=== PATIENT | female | born 1995 | race Two or more races ===

== ENCOUNTER 2020-10-02 14:03 | Observation (INO) | payer MEDICAID ==
[2020-10-02 16:00] LABS: Basophils # (auto) 0 10 ^3/uL (0-0.2); Basophils % (auto) 0.3 % (0.0-2.0); Eosinophils # (auto) 0.1 10 ^3/uL (0-0.8); Eosinophils % (auto) 0.9 % (0.0-7.0); Hematocrit 30.4 % (36.0-46.0); Lymphocytes # (auto) 2.8 10 ^3/uL (0.4-5.4); Lymphocytes % (auto) 20.7 % (10.0-50.0); Mean Corpuscular Hemoglobin 24.9 pg (28.0-32.0); Mean Corpuscular Hgb Conc. 32.7 g/dL (32.0-36.0); Mean Corpuscular Volume 76.2 fL (80.0-100.0); Monocytes # (auto) 0.5 10 ^3/uL (0-1.3); Monocytes % (auto) 3.3 % (0.0-12.0); Neutrophils # (auto) 10.2 10 ^3/uL (1.6-8.6); Neutrophils % (auto) 74.8 % (37.0-80.0); Nucleated Red Blood Cells % 0.1 %; Red Blood Cells 3.99 10^6/uL (4.0-5.20); Red Cell Distribution Width 16.2 % (11.8-14.3); White Blood Cell 13.7 10^3/uL (4.4-10.8)
[2020-10-02 16:19] LABS: Potassium 3.6 mmol/L (3.5-5.1)
[2020-10-02 16:20] LABS: INR 0.99 (0.9-1.15); Partial Thromboplastin Time 24.7 sec (23.6-33.0)
[2020-10-02 16:25] LABS: Albumin 2.2 g/dL (3.4-5.0); BUN/Creatinine Ratio 9.2; Bilirubin, Total 0.3 mg/dL (0.2-1.0); Calcium 8.9 mg/dL (8.5-10.1); Total Protein 7.7 g/dL (6.4-8.2); Uric Acid 5.2 mg/dL (2.6-6.0)
== END 2020-10-02 17:30 | disposition home or self-care (01) ==
LOC: LDRP 14:03
PROVIDERS: ADMIT Obstetrics & Gynecology; ATTEND Obstetrics & Gynecology
DX: O24.419 Gestational diabetes mellitus in pregnancy, unspecified control (principal); O26.893 Other specified pregnancy related conditions, third trimester; R20.0 Anesthesia of skin; Z3A.36 36 weeks gestation of pregnancy; Z79.899 Other long term (current) drug therapy
CPT/HCPCS: 36415; 59025; 76818; 80053; 81002; 84550; 85025; 85610; 85730; 94760; G0378

== ENCOUNTER 2020-10-05 07:50 | Observation (INO) | payer MEDICAID ==
[2020-10-05 09:07] LABS: Urine Bacteria FEW /hpf (None Seen); Urine Blood TRACE /uL (Negative); Urine Mucus FEW (None Seen); Urine Specific Gravity 1.027 (1.001-1.035); Urine WBC 76 /hpf (0 - 5)
== END 2020-10-05 11:08 | disposition home or self-care (01) ==
LOC: LDRP 07:50
PROVIDERS: ADMIT Obstetrics & Gynecology; ATTEND Obstetrics & Gynecology
DX: O13.3 Gestational [pregnancy-induced] hypertension without significant proteinuria, third trimester (principal); Z3A.36 36 weeks gestation of pregnancy; Z79.899 Other long term (current) drug therapy
CPT/HCPCS: 59025; 76818; 81001; 81002; 82570; 84156; 94760; G0378

== ENCOUNTER 2020-10-12 07:37 | Observation (INO) | payer MEDICAID ==
[~2020-10-12] VITALS: Ht 167.6 cm; Wt 136.5 kg
== END 2020-10-12 10:10 | disposition home or self-care (01) ==
LOC: LDRP 07:37
PROVIDERS: ADMIT Obstetrics & Gynecology; ATTEND Obstetrics & Gynecology
DX: O13.3 Gestational [pregnancy-induced] hypertension without significant proteinuria, third trimester (principal); Z3A.37 37 weeks gestation of pregnancy
CPT/HCPCS: 59025; 76818; 81002; 94760; G0378

== ENCOUNTER → 2020-10-16 | Outpatient (CLI) | payer MEDICAID ==
[2020-10-17 06:06] LABS: RPR Non Reactive (Non Reactive)
== END | disposition home or self-care (01) ==
LOC: LAB 09:57
PROVIDERS: ATTEND Obstetrics & Gynecology
DX: Z34.83 Encounter for supervision of other normal pregnancy, third trimester (principal); Z3A.37 37 weeks gestation of pregnancy
CPT/HCPCS: 86592

== ENCOUNTER 2020-10-18 08:05 | Observation (INO) | payer MEDICAID ==
[2020-10-18] MEDS ORDERED: LACTATED RINGER'S 1,000 ML IV ONE (11:30)
[2020-10-19] MEDS ORDERED: PREN-96 PO (14:01)
== END 2020-10-18 12:51 | disposition home or self-care (01) ==
LOC: LDRP 08:05
PROVIDERS: ADMIT Obstetrics & Gynecology; ATTEND Obstetrics & Gynecology
DX: O62.9 Abnormality of forces of labor, unspecified (principal); Z3A.38 38 weeks gestation of pregnancy
CPT/HCPCS: 59025; 76818; 81002; 94760; 96360; 96361; G0378

== ENCOUNTER 2020-10-19 13:38 | Inpatient (IN) | payer MEDICAID ==
[~2020-10-19] VITALS: Ht 30.5 cm; Wt 0.5 kg
[2020-10-19] MEDS ORDERED: PREN-96 PO (14:01)
[2020-10-19 15:54] LABS: Amphetamine Screen, Urine NEGATIVE (NEGATIVE); Barbiturate Scree,Urine NEGATIVE (NEGATIVE); Benzodiazephine Screen, Urine NEGATIVE (NEGATIVE); Cannabinoid Screen, Urine NEGATIVE (NEGATIVE); Cocaine Screen, Urine NEGATIVE (NEGATIVE); Opiate Scree,Urine NEGATIVE (NEGATIVE); Phencyclidine Screen, Urine NEGATIVE (NEGATIVE)
[2020-10-19] MEDS ORDERED: LACTATED RINGER'S 1,000 ML IV ONE (16:45)
[2020-10-19 19:08] LABS: Hemoglobin 9.9 g/dL (12.2-16.2); Mean Corpuscular Volume 76.2 fL (80.0-100.0); Monocytes # (auto) 0.6 10 ^3/uL (0-1.3)
[2020-10-19 19:10] LABS: Basophils # (auto) 0 10 ^3/uL (0-0.2); Basophils % (auto) 0.3 % (0.0-2.0); Eosinophils # (auto) 0.1 10 ^3/uL (0-0.8); Eosinophils % (auto) 1.1 % (0.0-7.0); Hematocrit 31.5 % (36.0-46.0); Mean Corpuscular Hgb Conc. 31.5 g/dL (32.0-36.0); Monocytes % (auto) 4.6 % (0.0-12.0); Neutrophils # (auto) 9.2 10 ^3/uL (1.6-8.6); Nucleated Red Blood Cells % 0.1 %; Red Blood Cells 4.14 10^6/uL (4.0-5.20); Red Cell Distribution Width 16.4 % (11.8-14.3)
[2020-10-19 19:22] LABS: INR 0.95 (0.9-1.15); Partial Thromboplastin Time 25.6 sec (23.6-33.0)
[2020-10-19 19:52] LABS: Albumin 2.2 g/dL (3.4-5.0); Calcium 8.8 mg/dL (8.5-10.1); Potassium 3.8 mmol/L (3.5-5.1)
[2020-10-19 19:55] LABS: BUN/Creatinine Ratio 12.5; Bilirubin, Total 0.2 mg/dL (0.2-1.0); Total Protein 7.3 g/dL (6.4-8.2)
[2020-10-19] MEDS: LACTATED RINGER'S 1,000 ML IV SCH (20:56)
[2020-10-19 22:04] LABS: Urine Bacteria FEW /hpf (None Seen); Urine Blood Negative /uL (Negative); Urine Specific Gravity 1.006 (1.001-1.035); Urine WBC 8 /hpf (0 - 5)
[2020-10-20] VITALS (17 sets, daily range): BP systolic 108–127; BP diastolic 57–88
[2020-10-20] MEDS: LACTATED RINGER'S 1,000 ML IV SCH ×4 (01:57→20:50)
[2020-10-20] MEDS ORDERED: ceFAZolin 2 GM in D5W 5% 100 ML IV ONE (04:00)
[2020-10-20] MEDS ORDERED: FERR-7 PO (07:05)
[2020-10-20] MEDS ORDERED: LACTATED RINGER'S 1,000 ML IV ONE (08:15)
[2020-10-20] MEDS ORDERED: MORPHINE SULF PF 2 MG/2 ML SYRG ONE (08:41)
[2020-10-20] MEDS ORDERED: fentaNYL CITRATE 100 MCG/2 ML VL ONE (08:41)
[2020-10-20] MEDS ORDERED: GUM (CHEWING) 1 GUM CHEW CHEW ONE (10:00)
[2020-10-20] MEDS ORDERED: ONDANSETRON HCL 4 MG/2 ML VIAL IV PRN ×2 (10:00→10:15)
[2020-10-20] MEDS ORDERED: HYDROmorphone HCL 2 MG/ML VL IV PRN (10:15)
[2020-10-20] MEDS: LACT. RINGERS/OXYTOCIN 20UNITS 1,000 ML IV ONE ×2 (12:19→12:22)
[2020-10-20] MEDS: MORPHINE SULFATE 4 MG/ML SYR/VIAL IV PRN ×2 (14:50→19:20)
[2020-10-20] MEDS ORDERED: ceFAZolin 1GM/50ML 50 ML IV SCH ×2 (15:30→16:30)
[2020-10-20 21:18] LABS: Basophils # (auto) 0 10 ^3/uL (0-0.2); Eosinophils # (auto) 0 10 ^3/uL (0-0.8); Eosinophils % (auto) 0.4 % (0.0-7.0); Hemoglobin 9.7 g/dL (12.2-16.2); Monocytes # (auto) 0.4 10 ^3/uL (0-1.3)
[2020-10-20 21:19] LABS: Basophils % (auto) 0.4 % (0.0-2.0); Lymphocytes # (auto) 1.2 10 ^3/uL (0.4-5.4); Lymphocytes % (auto) 12.6 % (10.0-50.0); Mean Corpuscular Hemoglobin 24.8 pg (28.0-32.0); Mean Corpuscular Hgb Conc. 32.4 g/dL (32.0-36.0); Mean Corpuscular Volume 76.7 fL (80.0-100.0); Monocytes % (auto) 4.7 % (0.0-12.0); Neutrophils # (auto) 7.9 10 ^3/uL (1.6-8.6); Neutrophils % (auto) 81.9 % (37.0-80.0); Red Blood Cells 3.92 10^6/uL (4.0-5.20); Red Cell Distribution Width 17.2 % (11.8-14.3); White Blood Cell 9.6 10^3/uL (4.4-10.8)
[2020-10-21] VITALS (12 sets, daily range): BP systolic 112–136; BP diastolic 60–83
[2020-10-21] MEDS: ceFAZolin 1GM/50ML 50 ML IV SCH ×3 (01:39→17:24)
[2020-10-21] MEDS: MORPHINE SULFATE 4 MG/ML SYR/VIAL IV PRN ×2 (02:22→06:45)
[2020-10-21] MEDS: LACTATED RINGER'S 1,000 ML IV SCH ×2 (04:40→18:15)
[2020-10-21 08:17] LABS: Eosinophils # (auto) 0.1 10 ^3/uL (0-0.8); Hemoglobin 9.3 g/dL (12.2-16.2); Monocytes # (auto) 0.4 10 ^3/uL (0-1.3)
[2020-10-21 08:18] LABS: Basophils # (auto) 0 10 ^3/uL (0-0.2); Basophils % (auto) 0.4 % (0.0-2.0); Hematocrit 28.6 % (36.0-46.0); Lymphocytes # (auto) 0.8 10 ^3/uL (0.4-5.4); Lymphocytes % (auto) 10.5 % (10.0-50.0); Mean Corpuscular Hemoglobin 24.9 pg (28.0-32.0); Mean Corpuscular Hgb Conc. 32.5 g/dL (32.0-36.0); Mean Corpuscular Volume 76.7 fL (80.0-100.0); Monocytes % (auto) 5.1 % (0.0-12.0); Neutrophils # (auto) 6.4 10 ^3/uL (1.6-8.6); Nucleated Red Blood Cells % 0.4 %; Red Blood Cells 3.73 10^6/uL (4.0-5.20); White Blood Cell 7.7 10^3/uL (4.4-10.8)
[2020-10-21] MEDS ORDERED: BISACODYL 10 MG RECT SUPP PR PRN (08:30)
[2020-10-21] MEDS ORDERED: HYDROcodone-ACET 5/325MG TAB PO PRN (08:30)
[2020-10-21] MEDS: HYDROcodone-ACET 5/325MG TAB PO PRN ×2 (09:29→17:25)
[2020-10-21] MEDS: DOCUSATE CALCIUM 240 MG CAP PO SCH (09:30)
[2020-10-21] MEDS: FERROUS SULFATE 325mg EC TAB PO SCH ×2 (09:30→21:46)
[2020-10-21] MEDS: DOCUSATE SOD 100 MG CAP PO SCH ×2 (09:30→21:46)
[2020-10-21] MEDS: IBUPROFEN 800 MG TAB PO PRN ×2 (12:34→21:46)
[2020-10-21] MEDS: SIMETHICONE 80 MG CHEWABLE TABLET PO SCH ×3 (12:35→21:45)
[2020-10-21] MEDS ORDERED: HYDR-4902 PO (19:48)
[2020-10-21] MEDS ORDERED: DOCU-94 PO (19:49)
[2020-10-21] MEDS ORDERED: ONDA-144 PO (19:50)
[2020-10-21] MEDS ORDERED: IBUP100S11 PO (19:51)
[2020-10-22] MEDS: ceFAZolin 1GM/50ML 50 ML IV SCH ×2 (01:28→10:04)
[2020-10-22] MEDS: LACTATED RINGER'S 1,000 ML IV SCH ×3 (02:15→18:15)
[2020-10-22 02:57] VITALS: BP 126/70
[2020-10-22] MEDS: HYDROcodone-ACET 5/325MG TAB PO PRN ×2 (04:30→18:48)
[2020-10-22] MEDS: SIMETHICONE 80 MG CHEWABLE TABLET PO SCH ×4 (05:53→21:33)
[2020-10-22 06:06] LABS: RPR Non Reactive (Non Reactive)
[2020-10-22 07:15] VITALS: BP 120/71
[2020-10-22] MEDS: FERROUS SULFATE 325mg EC TAB PO SCH ×2 (10:03→21:33)
[2020-10-22] MEDS: DOCUSATE CALCIUM 240 MG CAP PO SCH (10:03)
[2020-10-22] MEDS: DOCUSATE SOD 100 MG CAP PO SCH ×2 (10:03→21:33)
[2020-10-22] MEDS: IBUPROFEN 800 MG TAB PO PRN (10:09)
[2020-10-22] MEDS ORDERED: TETANUS-DIPTH-ACEL PERTUSSIS 0.5ML SYR Tdap IM ONE (10:45)
[2020-10-22 11:22] VITALS: BP 117/63
[2020-10-22 15:30] VITALS: BP 128/81
[2020-10-22 19:00] VITALS: BP 119/82
[2020-10-22 23:00] VITALS: BP 142/69
[2020-10-23 03:00] VITALS: BP 129/77
[2020-10-23] MEDS: HYDROcodone-ACET 5/325MG TAB PO PRN (03:07)
[2020-10-23] MEDS: SIMETHICONE 80 MG CHEWABLE TABLET PO SCH (06:00)
[2020-10-23 07:00] VITALS: BP 129/77
== END 2020-10-23 09:32 | disposition home or self-care (01) | DRG 540 ==
LOC: LDRP 13:38 → OBSVTOIN 17:50 → LDRP 10-20 00:31
PROVIDERS: ADMIT Obstetrics & Gynecology; ATTEND Obstetrics & Gynecology
PROC: 10D00Z1 Extraction of Products of Conception, Low, Open Approach (ICD-10-PCS; principal; 2020-10-20 08:52)
DX: O76 Abnormality in fetal heart rate and rhythm complicating labor and delivery (principal); O98.12 Syphilis complicating childbirth; Z37.0 Single live birth; Z3A.38 38 weeks gestation of pregnancy; Z20.822 Contact with and (suspected) exposure to COVID-19
CPT/HCPCS: 36415; 59025; 76818; 80053; 80307; 81001; 85025; 85610; 85730; 86592; 86850; 86900; 86901; 86920; 90715; 94760; 96360; 96361; 96366; 96372; 96374; 96375; G0378; J0690; J2590; J7060